=== PATIENT | female | born 1940 | race Caucasian/White ===

== ENCOUNTER 2018-03-23 15:10 | Emergency (ER) | payer OTHER ==
[2018-03-23 15:51] LABS: BASO # 0.1 10^3/uL (0.0-0.2); BASO % 1.4 % (0.0-1.0); EOS # 0.3 10^3/uL (0.0-0.50); HEMATOCRIT 45.2 % (36.0-47.0); HEMOGLOBIN 14.9 g/dl (12.0-15.5); IMMATURE GRANULOCYTE % 0.2 % (0-3.0); LYMPH # 2.5 10^3/uL (1.5-4.5); LYMPH % 29.5 % (24.0-44.0); MEAN CORPUSCULAR HEMOGLOBIN 31.8 pg (27.0-33.0); MEAN CORPUSCULAR VOLUME 96.6 fl (80.0-96.0); MONO # 0.6 10^3/uL (0.0-0.8); MONO % 7.4 % (0.0-5.0); NEUTROPHILS # 4.9 10^3/uL (1.8-7.7); NEUTROPHILS % 58.5 % (36.0-66.0); PLATELET COUNT, AUTOMATED 227 10^3/uL (150-450); RED BLOOD COUNT 4.68 10^6/uL (4.00-5.40); RED CELL DISTRIBUTION WIDTH 13.4 % (11.5-14.5); WHITE BLOOD COUNT 8.4 10^3/uL (4.0-10.0)
[2018-03-23] MEDS: IPRATROPIUM 0.5MG/ALBUTEROL 2.5MG INH SOL UD 3ML (DUONEB)(J7620) NEB (15:51)
[2018-03-23 16:24] LABS: ALBUMIN 3.8 GM/DL (3.2-5.2); ALBUMIN/GLOBULIN RATIO 0.93 (1.00-1.93); ALKALINE PHOSPHATASE 89 U/L (45-117); ALT/SGPT 14 U/L (12-78); ANION GAP 6 MEQ/L (8-16); AST/SGOT 24 U/L (7-37); BILIRUBIN,DIRECT < 0.1 MG/DL (0.0-0.2); BILIRUBIN,TOTAL 0.5 MG/DL (0.2-1.0); BLOOD UREA NITROGEN 10 MG/DL (7-18); CALCIUM LEVEL 8.8 MG/DL (8.8-10.2); CARBON DIOXIDE LEVEL 29 MEQ/L (21-32); CHLORIDE LEVEL 105 MEQ/L (98-107); CPK CREATINE PHOSPHOKINASE 97 U/L (26-192); CREATININE FOR GFR 0.63 MG/DL (0.55-1.30); GLOMERULAR FILTRATION RATE > 60.0 (>39); GLUCOSE, FASTING 77 MG/DL (70-100); POTASSIUM SERUM 4.4 MEQ/L (3.5-5.1); SODIUM LEVEL 140 MEQ/L (136-145); TOTAL PROTEIN 7.9 GM/DL (6.4-8.2); TROPONIN I < 0.02 NG/ML (< 0.10)
[2018-03-23 16:29] LABS: CK-MB VALUE MASS 1.5 NG/ML (<3.6); MB/CK RELATIVE INDEX 1.54 (< OR =4)
[2018-03-23] MEDS ORDERED: ISOVUE-370 76% 100ML VIAL (Q9967) As Ordered (16:42)
[2018-03-23 16:59] LABS: INR 0.95; PROTHROMBIN TIME 12.7 SECONDS (12.1-14.4)
[2018-03-23 17:00] LABS: PARTIAL THROMBOPLASTIN TIME 28.3 SECONDS (25.4-37.6)
[2018-03-23 18:57] LABS: D-DIMER QUANT 2244.5 ng/ml (<500)
== END 2018-03-23 20:44 | disposition left against medical advice (07) ==
LOC: M ED 15:10
DX: R07.81 Pleurodynia (principal); I26.99 Other pulmonary embolism without acute cor pulmonale; R94.31 Abnormal electrocardiogram [ECG] [EKG]; I25.2 Old myocardial infarction; J44.9 Chronic obstructive pulmonary disease, unspecified; E78.70 Disorder of bile acid and cholesterol metabolism, unspecified; K21.9 Gastro-esophageal reflux disease without esophagitis; F17.200 Nicotine dependence, unspecified, uncomplicated; Z79.899 Other long term (current) drug therapy; Z88.8 Allergy status to other drugs, medicaments and biological substances; Z88.0 Allergy status to penicillin; Z88.2 Allergy status to sulfonamides
CPT/HCPCS: Q9967

== ENCOUNTER 2019-03-10 16:41 | Inpatient (IN) | payer OTHER ==
[~2019-03-10] VITALS: Ht 134.6 cm; Wt 35.8 kg
[~2019-03-10 16:41] MED LIST: ALPR0.5T3 PO; ATOR40TA75 PO; CART180C3; CITA40TA4 PO; DILT180C43; OMEP1CAP73 PO; SYMBICORT; VENTAER
[2019-03-10] MEDS ORDERED: DONE10TA90 PO (16:56)
[2019-03-10] MEDS ORDERED: ISOS30TA4 PO (16:56)
[2019-03-10] MEDS ORDERED: DILT120C89 PO (16:56)
[2019-03-10] MEDS ORDERED: CLOP75TA2 PO (16:56)
--- NOTE | 2019-03-10 17:35 | REP ---
Portable chest x-ray: Single view. History: Dyspnea and cough. Comparison chest x-ray: March 23 1018. Findings: EKG monitoring electrodes overlie the chest along with oxygen delivery tubing. There is diffuse osteopenia. The patient is extremely thin. The lungs are well inflated and free of infiltrate. Heart is not enlarged. The aorta is calcific and tortuous. Interstitial markings are slightly prominent today. This is a new finding. Question interstitial edema versus diffuse interstitial infiltrate. Exam is otherwise unremarkable. Electronically Signed by Jorge A Latham MD 03/10/2019 05:26 P
[2019-03-10] MEDS ORDERED: IPRATROPIUM 0.5MG/ALBUTEROL 2.5MG INH SOL UD 3ML (DUONEB)(J7620) NEB ONE (17:45)
[2019-03-10] MEDS ORDERED: ALBUTEROL SULFATE 2.5 MG/0.5 ML INH NEB SOLN INH ONE (17:45)
[2019-03-10] MEDS ORDERED: dexameTHASONE 20 MG/5 ML VIAL (J1100) IV ONE (17:45)
[2019-03-10 18:00] LABS: BASO # 0.1 10^3/uL (0.0-0.2); BASO % 0.8 % (0.0-1.0); EOS # 0.1 10^3/uL (0.0-0.50); HEMATOCRIT 40.4 % (36.0-47.0); HEMOGLOBIN 12.9 g/dl (12.0-15.5); LYMPH # 1.2 10^3/uL (1.5-4.5); LYMPH % 11.5 % (24.0-44.0); MEAN CORPUSCULAR HEMOGLOBIN 30.8 pg (27.0-33.0); MEAN CORPUSCULAR HGB CONC 31.9 g/dl (32.0-36.5); MEAN CORPUSCULAR VOLUME 96.4 fl (80.0-96.0); MONO # 1.5 10^3/uL (0.0-0.8); MONO % 14.7 % (0.0-5.0); NEUTROPHILS # 7.4 10^3/uL (1.8-7.7); NEUTROPHILS % 71.5 % (36.0-66.0); PLATELET COUNT, AUTOMATED 257 10^3/uL (150-450); RED BLOOD COUNT 4.19 10^6/uL (4.00-5.40); VENOUS BASE EXCESS 4.9 (-2.0-2.0); VENOUS HCO3 31.2 MEQ/L (23.0-27.0); VENOUS O2 SATURATION 99.1 % (60.0-80.0); VENOUS PARTIAL PRESSURE O2 144.1 mmHg (30.0-50.0); VENOUS PH 7.388 UNITS (7.330-7.430); VENOUS STANDARD HCO3 28.9 MEQ/L; VENOUS TOTAL CO2 32.8 MEQ/L (24.0-28.0); WHITE BLOOD COUNT 10.4 10^3/uL (4.0-10.0)
[2019-03-10 18:40] LABS: ALBUMIN 3.1 GM/DL (3.2-5.2); ALT/SGPT 15 U/L (12-78); BILIRUBIN,DIRECT 0.2 MG/DL (0.0-0.2); BILIRUBIN,TOTAL 0.2 MG/DL (0.2-1.0); BLOOD UREA NITROGEN 28 MG/DL (7-18); CALCIUM LEVEL 8.6 MG/DL (8.8-10.2); CARBON DIOXIDE LEVEL 30 MEQ/L (21-32); CHLORIDE LEVEL 105 MEQ/L (98-107); CK-MB VALUE MASS 4.9 NG/ML (<3.6); CPK CREATINE PHOSPHOKINASE 147 U/L (26-192); CREATININE FOR GFR 0.61 MG/DL (0.55-1.30); GLOMERULAR FILTRATION RATE > 60.0 (>32); GLUCOSE, FASTING 100 MG/DL (70-100); MB/CK RELATIVE INDEX 3.33 (< OR =4); NT-PRO BNP 1413 PG/ML (<450); POTASSIUM SERUM 2.9 MEQ/L (3.5-5.1); SODIUM LEVEL 142 MEQ/L (136-145); TOTAL PROTEIN 6.5 GM/DL (6.4-8.2); TROPONIN I < 0.02 NG/ML (< 0.10)
--- NOTE | 2019-03-10 20:49 | ECGEPIP ---
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
[2019-03-10 20:50] LABS: INR 0.99; PROTHROMBIN TIME 12.8 SECONDS (11.8-14.0)
[2019-03-10] MEDS ORDERED: SYMB16INH INH (21:22)
[2019-03-10] MEDS ORDERED: ACETAMINOPHEN TAB 650MG DOSE (2X325MG) PO PRN (21:45)
[2019-03-10] MEDS ORDERED: ALPRAZolam 0.5 MG TAB PO PRN (21:45)
--- NOTE | 2019-03-10 21:57 | HPEPDOC ---
General Date of Admission 03/10/19 Date of Service: Mar 10, 2019 Chief Complaint The patient is a 78-year-old female admitted with a reason for visit of SOB. History of Present Illness 78-year-old female with past medical history of anxiety/depression, dyslipidemia, GERD, atrial fibrillation not on anticoagulation, and COPD who is visiting her daughter from [place] presents to the ER with a chief complaint of shortness of breath. The patient's history was limited due to her clinical condition. According to the patient's daughter, the patient has been feeling increasingly short of breath over the last 5 days. She has also been having a cough productive of green sputum. She endorses of the patient smokes 2 packs per day of tobacco, and has been doing so for the last 60+ years. She denies chronic oxygen use, or steroid use. She denies any complaints of fevers, chills, chest pain, palpitations, abdominal pain, or any nausea/vomiting/diarrhea. In the ER, the patient was noted to be in atrial fibrillation with rapid ventricular rate secondary to COPD exacerbation. She will be admitted to the hospitalist service for further evaluation and management. Home Medications Scheduled Atorvastatin Calcium (Atorvastatin Calcium) 40 Mg Tab, 40 MG PO DAILY, (Reported) Budesonide/Formoterol (Symbicort 160-4.5 Mcg Inhaler) 6 Gm Hfa.aer.ad, 2 PUFF INH BID, (Reported) Citalopram Hydrobromide (Citalopram HBr) 40 Mg Tab, 40 MG PO DAILY, (Reported) Clopidogrel Bisulfate (Clopidogrel) 75 Mg Tablet, 75 MG PO DAILY, (Reported) Donepezil HCl (Donepezil HCl) 10 Mg Tablet, 10 MG PO QHS, (Reported) Isosorbide Mononitrate (Isosorbide Mononitrate ER) 30 Mg Tab.er.24h, 30 MG PO DAILY, (Reported) Omeprazole (Omeprazole) 20 Mg Cap, 20 MG PO DAILY, (Reported) dilTIAZem HCl (Diltiazem 24Hr Cd) 120 Mg Cap.er.24h, 120 MG PO DAILY, (Reported) Scheduled PRN Alprazolam (Alprazolam) 0.5 Mg Tab, 0.5 MG PO TID PRN for ANXIETY, (Reported) Allergies Coded Allergies: Penicillins (Verified Allergy, Unknown, 03/10/19) Sulfa (Sulfonamide Antibiotics) (Verified Allergy, Unknown, 03/10/19) cimetidine (Verified Allergy, Unknown, 03/10/19) Past Medical History Medical History As noted in HPI. Social History * Smoker: current smoker (has smoked 2 packs per day on average for the past 60+ years.) Alcohol: Denies Drugs: denies Lives with her daughter while visiting here. He does travel back and forth to [place]. Review of Systems Other systems Unable to obtain 10 point review of systems due to clinical condition. Physical Examination General Exam: Positive: Mild Distress (secondary to shortness of breath), Other (patient cachectic, malnourished appearing) ENT Exam: Positive: Atraumatic, Other ENT (bitemporal wasting noted) Chest Exam: Positive: Wheezing, Diminished, Other (barrel-shaped chest with rib s visible on the surface of the skin.); Negative: Rales Heart Exam: Positive: Tachycardic, Irregular Rhythm Telemetry: Positive: Atrial fibrillation Abdomen Exam: Positive: Soft; Negative: Tenderness Extremity Exam: Negative: Tenderness, Swelling Vital Signs Vital Signs Date Time Temp Pulse Resp B/P (MAP) Pulse Ox O2 Delivery O2 Flow Rate FiO2 03/10/19 17:30 Nasal Cannula 03/10/19 17:30 03/10/19 16:41 98.0 117 20 82 Laboratory Data Labs 24H Laboratory Tests 2 03/10/19 17:52: Immature Granulocyte % (Auto) 0.5, White Blood Count 10.4H, Red Blood Count 4.19, Hemoglobin 12.9, Hematocrit 40.4, Mean Corpuscular Volume 96.4H, Mean Corpuscular Hemoglobin 30.8, Mean Corpuscular Hemoglobin Concent 31.9L, Red Cell Distribution Width 14.4, Platelet Count 257, Neutrophils (%) (Auto) 71.5H, Lymphocytes (%) (Auto) 11.5L, Monocytes (%) (Auto) 14.7H, Eosinophils (%) (Auto) 1.0, Basophils (%) (Auto) 0.8, Neutrophils # (Auto) 7.4, Lymphocytes # (Auto) 1.2L, Monocytes # (Auto) 1.5H, Eosinophils # (Auto) 0.1, Basophils # (Auto) 0.1, Nucleated Red Blood Cells % (auto) 0.0, Blood Gas Bicarbonate Standard 28.9, Venous Blood pH 7.388, Venous Blood Partial Pressure CO2 53.0H, Venous Blood Partial Pressure O2 144.1H, Venous Blood Total Carbon Dioxide 32.8H, Venous Blood HCO3 31.2H, Venous Blood Oxygen Saturation 99.1H, Venous Blood Base Excess 4.9H, Anion Gap 7L, Glomerular Filtration Rate > 60.0, Calcium Level 8.6L, Aspartate Amino Transf (AST/SGOT) 27, Alanine Aminotransferase (ALT/SGPT) 15, Alkaline Phosphatase 90, Total Bilirubin 0.2, Direct Bilirubin 0.2, Total Creatine Kinase 147, Creatine Kinase MB 4.9H, Creatine Kinase MB Relative Index 3.33, Troponin I < 0.02, YM-Aht-N-Type Natriuretic Peptide 1413H, Total Protein 6.5, Albumin 3.1L, Albumin/Globulin Ratio 0.91L 03/10/19 20:27: Urine Color YELLOW, Urine Appearance HAZY, Urine pH 5.0, Urine Specific [place] 1.021, Urine Protein 1+H, Urine Glucose (UA) NEGATIVE, Urine Ketones 1+H, Urine Blood 2+H, Urine Nitrite NEGATIVE, Urine Bilirubin NEGATIVE, Urine Urobilinogen 0.2, Urine Leukocyte Esterase NEGATIVE, Urine WBC (Auto) 6H, Urine RBC (Auto) 44H, Urine Hyaline Casts (Auto) 13, Urine Bacteria (Auto) NEGATIVE, Urine Squamous Epithelial Cells 1, Urine Mucus (Auto) SMALL, Urine Sperm (Auto) 03/10/19 20:33: Prothrombin Time 12.8, Prothromb Time International Ratio 0.99 CBC/BMP Laboratory Tests 03/10/19 17:52 Red Blood Count 4.19, Mean Corpuscular Volume 96.4 H, Mean Corpuscular Hemoglobin 30.8, Mean Corpuscular Hemoglobin Concent 31.9 L, Red Cell Distribution Width 14.4, Neutrophils (%) (Auto) 71.5 H, Lymphocytes (%) (Auto) 11.5 L, Monocytes (%) (Auto) 14.7 H, Eosinophils (%) (Auto) 1.0, Basophils (%) (Auto) 0.8, Neutrophils # (Auto) 7.4, Lymphocytes # (Auto) 1.2 L, Monocytes # (Auto) 1.5 H, Eosinophils # (Auto) 0.1, Basophils # (Auto) 0.1 Plan / VTE VTE Prophylaxis Ordered?: Yes Plan Plan COPD exacerbation, Hypoxia Chest x-ray noted IV Solu-Medrol, inhaler therapy, and serial nebulizer treatments ordered. Azithromycin We will continue to down titrate the patient's supplemental oxygen as tolerated Continue to monitor respiratory status Atrial fibrillation with rapid ventricular rate Likely secondary to above Continue home dose of Cardizem, Lopressor when necessary ordered Blood pressure stable The patient does not take anticoagulation--she does take Plavix for unclear reasons, the patient's daughter denies any history of heart disease Dyslipidemia Continue statin GERD Continue PPI Anxiety/depression Continue Xanax when necessary, Celexa DVT prophylaxis SCDs/TEDs Code Status--I did have an extensive discussion with the patient's daughter at the bedside, and she has verbalized that the patient is a DNR/DNI and has paperwork in [place]. We have signed a MOLST form here to reflect that status. Poor long-term prognosis given her advanced COPD, cachexia, and continued tobacco use. NOAH MONTANO MD Mar 10, 2019 21:57
[2019-03-10] MEDS ORDERED: AZITHROMYCIN INJ 500 MG, VIAL MATE ADAPTER 1 EACH in D5W 250 ML IV SCH (22:00)
[2019-03-11 00:10] VITALS: BP 115/56
[2019-03-11] MEDS: methylPREDNISolone INJ 40 MG/1 ML VIAL (J2920) IV SCH ×2 (00:41→09:22)
[2019-03-11] MEDS: METOPROLOL TART 25 MG TABLET PO SCH ×4 (00:42→12:24)
[2019-03-11 04:00] VITALS: BP 110/58
[2019-03-11] MEDS: LEVALBUTEROL 1.25 MG/0.5 ML CONCENTRATE NEB INH SCH ×5 (04:00→14:47)
[2019-03-11 07:46] LABS: HEMOGLOBIN 12.5 g/dl (12.0-15.5); MEAN CORPUSCULAR HEMOGLOBIN 30.5 pg (27.0-33.0); MEAN CORPUSCULAR HGB CONC 31.3 g/dl (32.0-36.5); MEAN CORPUSCULAR VOLUME 97.6 fl (80.0-96.0); PLATELET COUNT, AUTOMATED 261 10^3/uL (150-450); WHITE BLOOD COUNT 8.6 10^3/uL (4.0-10.0)
[2019-03-11 08:00] VITALS: BP 112/70
[2019-03-11 08:18] LABS: ALBUMIN 2.8 GM/DL (3.2-5.2); ALT/SGPT 15 U/L (12-78); BILIRUBIN,TOTAL 0.2 MG/DL (0.2-1.0); BLOOD UREA NITROGEN 30 MG/DL (7-18); CALCIUM LEVEL 8.4 MG/DL (8.8-10.2); CARBON DIOXIDE LEVEL 30 MEQ/L (21-32); CHLORIDE LEVEL 103 MEQ/L (98-107); CREATININE FOR GFR 0.52 MG/DL (0.55-1.30); GLOMERULAR FILTRATION RATE > 60.0 (>32); GLUCOSE, FASTING 149 MG/DL (70-100); POTASSIUM SERUM 3.7 MEQ/L (3.5-5.1); SODIUM LEVEL 140 MEQ/L (136-145); TOTAL PROTEIN 6.9 GM/DL (6.4-8.2)
[2019-03-11] MEDS ORDERED: OMEPRAZOLE 20 MG CAP PO SCH (09:00)
[2019-03-11] MEDS ORDERED: ISOSORBIDE MON. (IMDUR) 30 MG XR TAB PO SCH (09:00)
[2019-03-11] MEDS ORDERED: CitaloPRAM (CeleXA) 20 MG TAB PO SCH (09:00)
[2019-03-11] MEDS ORDERED: POTASSIUM CHLORIDE 10 MEQ SR TABLET PO ONE (09:00)
[2019-03-11] MEDS ORDERED: ATORVASTATIN 20 MG TAB PO SCH (09:00)
[2019-03-11] MEDS ORDERED: CLOPIDOGREL 75 MG TAB PO SCH (09:00)
[2019-03-11] MEDS ORDERED: KCL 10MEQ/100ML SWI (KRUN) 10 MEQ in IV 1 EA IV SCH (09:00)
[2019-03-11] MEDS ORDERED: SYMBICORT 160/4.5MCG INHALER 6GM INH SCH (09:00)
[2019-03-11] MEDS ORDERED: NICOTINE 21MG/24HR 1 EA TRANSDERMAL TD SCH (09:00)
[2019-03-11 12:00] VITALS: BP 114/78
[2019-03-11 12:24] VITALS: BP 114/78
--- NOTE | 2019-03-11 14:50 | IPNPDOC ---
Date Seen The patient was seen on 03/11/19. Progress Note SUBJECTIVE: Patient reports good improvement in her respiratory symptoms today, she tells me that she still has some shortness of breath but is not as bad as it was yesterday. She denies palpitations lightheadedness otherwise patient denies chest pain, nausea, vomiting, fevers, chills OBJECTIVE PHYSICAL EXAMINATION: VITAL SIGNS: Please see below. GENERAL: Frail elderly cachectic female laying in bed accompanied by her daughter no Acute distress HEENT: Moist mucous membranes no elevation in CVP CARDIOVASCULAR: S1 S2 regular no additional heart sounds appreciated. Regular at the time of my exam RESPIRATORY: Clear to auscultation bilaterally. Poor effort diminished throughout at the bases prolonged expiratory phase, scaling wasting ABDOMINAL: Bowel sounds present abdomen soft and nontender, scaphoid EXTREMITIES: No clubbing cyanosis or edema, she is significantly wasted NEUROLOGICAL: Spontaneously moves all 4 extremities cranial 2 through 12 grossly intact no gross focal deficits appreciated PSYCHOLOGICAL: Appropriate LABORATORY DATA, MICROBIOLOGY: Please see below. IMAGING STUDIES: Chest x-ray:EKG monitoring electrodes overlie the chest along with oxygen delivery tubing. There is diffuse osteopenia. The patient is extremely thin. The lungs are well inflated and free of infiltrate. Heart is not enlarged. The aorta is calcific and tortuous. Interstitial markings are slightly prominent today. This is a new finding. Question interstitial edema versus diffuse interstitial infiltrate. Exam is otherwise unremarkable. ASSESSMENT AND PLAN: This is a 78-year-old female with decompensated COPD. PROBLEMS: 1. Hypoxic respiratory failure secondary to decompensated COPD: She is significantly improved today and as such we'll continue with her current intervention of IV Solu-Medrol nebulizer therapy azithromycin although infectious etiology of lower differential. We will titrate her oxygen as niloe rated process 80-92 she normally refuses to wear oxygen at home. She normally refuses to see doctors and has not followed up recently in [place] where she lives. She does have a wet cough and appears to have some mild clearance of secretions I'll provide her with an Acapella and Mucinex 2. Atrial fibrillation with rapid ventricular response: Improved this morning following treatment of her respiratory distress upon presentation. Continue with Cardizem patient does not take anticoagulation only Plavix as per her providers in [place] patient and daughter are unable to provide any reasoning for this. 3. Dyslipidemia: Continue statin 4. Gastroesophageal reflux disease: Continue PPI 5. Mood disorder: Continue with Xanax and Celexa 6. Routine calorie malnutrition: Severe pulmonary cachexia patient's interstitial status is quite poor patient is a DNR/DNI after Dr. Haas's conversation she did express his wishes. I did a lengthy conversation with the patient and the daughter saying that her nutritional status is so poor that I suspect she will benefit from a nutrition consult I will order for speech therapy as well.. I did inform the patient and her daughter that given her nutritional status her prognosis is quite poor in the long-term although she is improved today 7. Hypokalemia: Resolved DVT prophylaxis: We will start Lovenox DISPOSITION: Pending speech therapy eval, nutrition consult, improvement in respiratory status. VS, I&O, 24H, Fishbone Vital Signs/I&O Vital Signs Date Time Temp Pulse Resp B/P (MAP) Pulse Ox O2 Delivery O2 Flow Rate FiO2 03/11/19 12:24 70 114/78 03/11/19 12:00 98.0 18 92 1.0 03/10/19 23:25 Nasal Cannula I&O- Last 24 Hours up to 6 AM 03/11/19 06:00 Intake Total 250 ml Output Total 0 ml Balance 250 ml Laboratory Data 24H LABS Laboratory Tests 2 03/10/19 17:52: Immature Granulocyte % (Auto) 0.5, White Blood Count 10.4H, Red Blood Count 4.19, Hemoglobin 12.9, Hematocrit 40.4, Mean Corpuscular Volume 96.4H, Mean Corpuscular Hemoglobin 30.8, Mean Corpuscular Hemoglobin Concent 31.9L, Red Cell Distribution Width 14.4, Platelet Count 257, Neutrophils (%) (Auto) 71.5H, Lymphocytes (%) (Auto) 11.5L, Monocytes (%) (Auto) 14.7H, Eosinophils (%) (Auto) 1.0, Basophils (%) (Auto) 0.8, Neutrophils # (Auto) 7.4, Lymphocytes # (Auto) 1.2L, Monocytes # (Auto) 1.5H, Eosinophils # (Auto) 0.1, Basophils # (Auto) 0.1, Nucleated Red Blood Cells % (auto) 0.0, Blood Gas Bicarbonate Standard 28.9, Venous Blood pH 7.388, Venous Blood Partial Pressure CO2 53.0H, Venous Blood Partial Pressure O2 144.1H, Venous Blood Total Carbon Dioxide 32.8H, Venous Blood HCO3 31.2H, Venous Blood Oxygen Saturation 99.1H, Venous Blood Base Excess 4.9H, Anion Gap 7L, Glomerular Filtration Rate > 60.0, Calcium Level 8.6L, Aspartate Amino Transf (AST/SGOT) 27, Alanine Aminotransferase (ALT/SGPT) 15, Alkaline Phosphatase 90, Total Bilirubin 0.2, Direct Bilirubin 0.2, Total Creatine Kinase 147, Creatine Kinase MB 4.9H, Creatine Kinase MB Relative Index 3.33, Troponin I < 0.02, YT-Uxt-L-Type Natriuretic Peptide 1413H, Total Protein 6.5, Albumin 3.1L, Albumin/Globulin Ratio 0.91L 03/10/19 20:27: Urine Color YELLOW, Urine Appearance HAZY, Urine pH 5.0, Urine Specific [place] 1.021, Urine Protein 1+H, Urine Glucose (UA) NEGATIVE, Urine Ketones 1+H, Urine Blood 2+H, Urine Nitrite NEGATIVE, Urine Bilirubin NEGATIVE, Urine Urobilinogen 0.2, Urine Leukocyte Esterase NEGATIVE, Urine WBC (Auto) 6H, Urine RBC (Auto) 44H, Urine Hyaline Casts (Auto) 13, Urine Bacteria (Auto) NEGATIVE, Urine Squamous Epithelial Cells 1, Urine Mucus (Auto) SMALL, Urine Sperm (Auto) 03/10/19 20:33: Prothrombin Time 12.8, Prothromb Time International Ratio 0.99 03/11/19 07:34: Nucleated Red Blood Cells % (auto) 0.0, Anion Gap 7L, Glomerular Filtration Rate > 60.0, Calcium Level 8.4L, Aspartate Amino Transf (AST/SGOT) 26, Alanine Aminotransferase (ALT/SGPT) 15, Alkaline Phosphatase 85, Total Bilirubin 0.2, Total Protein 6.9, Albumin 2.8L, Albumin/Globulin Ratio 0.68L, Blood Urea N itrogen 30H, Creatinine 0.52L, Sodium Level 140, Potassium Level 3.7#, Chloride Level 103, Carbon Dioxide Level 30, Magnesium Level 2.0 CBC/BMP Laboratory Tests 03/10/19 17:52 Red Blood Count 4.19, Mean Corpuscular Volume 96.4 H, Mean Corpuscular Hemoglobin 30.8, Mean Corpuscular Hemoglobin Concent 31.9 L, Red Cell Distribution Width 14.4, Neutrophils (%) (Auto) 71.5 H, Lymphocytes (%) (Auto) 11.5 L, Monocytes (%) (Auto) 14.7 H, Eosinophils (%) (Auto) 1.0, Basophils (%) (Auto) 0.8, Neutrophils # (Auto) 7.4, Lymphocytes # (Auto) 1.2 L, Monocytes # (Auto) 1.5 H, Eosinophils # (Auto) 0.1, Basophils # (Auto) 0.1 03/11/19 07:34 Red Blood Count 4.10, Mean Corpuscular Volume 97.6 H, Mean Corpuscular Hemoglobin 30.5, Mean Corpuscular Hemoglobin Concent 31.3 L, Red Cell Distribution Width 14.4, Calcium Level 8.4 L, Aspartate Amino Transf (AST/SGOT) 26, Alanine Aminotransferase (ALT/SGPT) 15, Alkaline Phosphatase 85, Total Bilirubin 0.2, Total Protein 6.9, Albumin 2.8 L CALLY ALLEN MD Mar 11, 2019 14:50
[2019-03-11] MEDS ORDERED: MUCI600T31 PO (16:18)
[2019-03-11] MEDS ORDERED: PRED10TA2 PO (16:18)
[2019-03-11] MEDS ORDERED: AZIT500T5 PO (16:19)
--- NOTE | 2019-03-11 16:23 | DS.PDOC ---
Discharge Summary General Date of Admission Mar 10, 2019 at 21:38 Date of Discharge 03/11/2019 Discharge Summary DISCHARGE DIAGNOSIS:Decompensated COPD SECONDARY DIAGNOSIS: 1. Atrial fibrillation with rapid ventricular response 2. Dyslipidemia 3. Gastroesophageal reflux disease 4. Mood disorder. Proteins telemetry malnutrition 6. Hypokalemia 7. Medical noncompliance PROCEDURES PERFORMED DURING STAY: None. CONSULTANTS: None HOSPITAL COURSE: Patient is an 78-year-old female who was admitted yesterday for COPD and Hypertension. With Rapid Ventricular Response Was Found to Be Significantly Cachectic She Was Started on Oxygen IV Steroids and Nebulizer Treatments and Azithromycin. Her Heart Rate Did Improve Her Respiratory Status Improved She Was Found to Be Severely Cachectic with a Wet Cough She Declined Offers for Full Excisional Assessment Speech Therapy Evaluation for Further Care and like to Leave the Hospital AGAINST MEDICAL ADVICE Abruptly. Hyperlipidemia the Patient Twice during the Day Prior to Her Leaving the Hospital and Extending from the Floor. Numerous Members of the Staff Attempted to Convince Her to Stay Including the Medical Staff. The Patient Did Walk out She Did Demonstrate Good Orientation and Mental Alertness an Understanding of the Situation. Follow-Up Was Not Able to Be Arranged However Prescriptions Were Sent to Her Pharmacy in Order to Make an Effort to Arrange a Safe Disposition As Possible. She understood the risks up to and including respiratory failure and DISCHARGE MEDICATIONS: Please see below. ALLERGIES: Please see below. DISPOSITION: Limb AGAINST MEDICAL ADVICE. DISCHARGE CONDITION: Improved. PROGNOSIS: Poor FOLLOW UP: PCP as soon as possible ACTIVITY: Limited due to dyspnea. DIET: As tolerated TIME SPENT ON DISCHARGE: 35 minutes Please see progress note from today's date for further details regarding assessment and plan as well as physical examination chief complaint Vital Signs/I&Os Vital Signs Date Time Temp Pulse Resp B/P (MAP) Pulse Ox O2 Delivery O2 Flow Rate FiO2 03/11/19 12:24 70 114/78 03/11/19 12:00 98.0 18 92 1.0 03/10/19 23:25 Nasal Cannula I&O- Last 24 Hours up to 6 AM 03/11/19 06:00 Intake Total 250 ml Output Total 0 ml Balance 250 ml Laboratory Data Labs 24H Laboratory Tests 2 03/10/19 17:52: Immature Granulocyte % (Auto) 0.5, White Blood Count 10.4H, Red Blood Count 4.19, Hemoglobin 12.9, Hematocrit 40.4, Mean Corpuscular Volume 96.4H, Mean Corpuscular Hemoglobin 30.8, Mean Corpuscular Hemoglobin Concent 31.9L, Red Cell Distribution Width 14.4, Platelet Count 257, Neutrophils (%) (Auto) 71.5H, Lymphocytes (%) (Auto) 11.5L, Monocytes (%) (Auto) 14.7H, Eosinophils (%) (Auto) 1.0, Basophils (%) (Auto) 0.8, Neutrophils # (Auto) 7.4, Lymphocytes # (Auto) 1.2L, Monocytes # (Auto) 1.5H, Eosinophils # (Auto) 0.1, Basophils # (Auto) 0.1, Nucleated Red Blood Cells % (auto) 0.0, Blood Gas Bicarbonate Standard 28.9, Venous Blood pH 7.388, Venous Blood Partial Pressure CO2 53.0H, Venous Blood Partial Pressure O2 144.1H, Venous Blood Total Carbon Dioxide 32.8H, Venous Blood HCO3 31.2H, Venous Blood Oxygen Saturation 99.1H, Venous Blood Base Excess 4.9H, Anion Gap 7L, Glomerular Filtration Rate > 60.0, Calcium Level 8.6L, Aspartate Amino Transf (AST/SGOT) 27, Alanine Aminotransferase (ALT/SGPT) 15, Alkaline Phosphatase 90, Total Bilirubin 0.2, Direct Bilirubin 0.2, Total Creatine Kinase 147, Creatine Kinase MB 4.9H, Creatine Kinase MB Relative Index 3.33, Troponin I < 0.02, ZB-Eny-M-Type Natriuretic Peptide 1413H, Total Protein 6.5, Albumin 3.1L, Albumin/Globulin Ratio 0.91L 03/10/19 20:27: Urine Color YELLOW, Urine Appearance HAZY, Urine pH 5.0, Urine Specific [place] 1.021, Urine Protein 1+H, Urine Glucose (UA) NEGATIVE, Urine Ketones 1+H, Urine Blood 2+H, Urine Nitrite NEGATIVE, Urine Bilirubin NEGATIVE, Urine Urobilinogen 0.2, Urine Leukocyte Esterase NEGATIVE, Urine WBC (Auto) 6H, Urine RBC (Auto) 44H, Urine Hyaline Casts (Auto) 13, Urine Bacteria (Auto) NEGATIVE, Urine Squamous Epithelial Cells 1, Urine Mucus (Auto) SMALL, Urine Sperm (Auto) 03/10/19 20:33: Prothrombin Time 12.8, Prothromb Time International Ratio 0.99 03/11/19 07:34: Nucleated Red Blood Cells % (auto) 0.0, Anion Gap 7L, Glomerular Filtration Rate > 60.0, Calcium Level 8.4L, Aspartate Amino Transf (AST/SGOT) 26, Alanine Aminotransferase (ALT/SGPT) 15, Alkaline Phosphatase 85, Total Bilirubin 0.2, Total Protein 6.9, Albumin 2.8L, Albumin/Globulin Ratio 0.68L, Blood Urea Nitrogen 30H, Creatinine 0.52L, Sodium Level 140, Potassium Level 3.7#, Chloride Level 103, Carbon Dioxide Level 30, Magnesium Level 2.0 CBC/BMP Laboratory Tests 03/10/19 17:52 Red Blood Count 4.19, Mean Corpuscular Volume 96.4 H, Mean Corpuscular Hemoglobin 30.8, Mean Corpuscular Hemoglobin Concent 31.9 L, Red Cell Distribution Width 14.4, Neutrophils (%) (Auto) 71.5 H, Lymphocytes (%) (Auto) 11.5 L, Monocytes (%) (Auto) 14.7 H, Eosinophils (%) (Auto) 1.0, Basophils (%) (Auto) 0.8, Neutrophils # (Auto) 7.4, Lymphocytes # (Auto) 1.2 L, Monocytes # (Auto) 1.5 H, Eosinophils # (Auto) 0.1, Basophils # (Auto) 0.1 03/11/19 07:34 Red Blood Count 4.10, Mean Corpuscular Volume 97.6 H, Mean Corpuscular Hemoglobin 30.5, Mean Corpuscular Hemoglobin Concent 31.3 L, Red Cell Distribution Width 14.4, Calcium Level 8.4 L, Aspartate Amino Transf (AST/SGOT) 26, Alanine Aminotransferase (ALT/SGPT) 15, Alkaline Phosphatase 85, Total Bilirubin 0.2, Total Protein 6.9, Albumin 2.8 L Discharge Medications Scheduled Atorvastatin Calcium (Atorvastatin Calcium) 40 Mg Tab, 40 MG PO DAILY, (Reported) Azithromycin (Azithromycin) 500 Mg Tablet, 500 MG PO DAILY Budesonide/Formoterol (Symbicort 160-4.5 Mcg Inhaler) 6 Gm Hfa.aer.ad, 2 PUFF INH BID, (Reported) Citalopram Hydrobromide (Citalopram HBr) 40 Mg Tab, 40 MG PO DAILY, (Reported) Clopidogrel Bisulfate (Clopidogrel) 75 Mg Tablet, 75 MG PO DAILY, (Reported) Donepezil HCl (Donepezil HCl) 10 Mg Tablet, 10 MG PO QHS, (Reported) Guaifenesin (Mucinex) 600 Mg Tab.er.12h, 600 MG PO BID Isosorbide Mononitrate (Isosorbide Mononitrate ER) 30 Mg Tab.er.24h, 30 MG PO DAILY, (Reported) Omeprazole (Omeprazole) 20 Mg Cap, 20 MG PO DAILY, (Reported) Prednisone (Prednisone) 10 Mg Tablet, 10 MG PO TAPER Take 4 tabs daily x 3 days, then 3 tabs daily x 3 days, then 2 tabs daily x 3 days, then 1 tab daily x 3 days and stop dilTIAZem HCl (Diltiazem 24Hr Cd) 120 Mg Cap.er.24h, 120 MG PO DAILY, (Reported) Scheduled PRN Alprazolam (Alprazolam) 0.5 Mg Tab, 0.5 MG PO TID PRN for ANXIETY, (Reported) Allergies Coded Allergies: Penicillins (Verified Allergy, Unknown, 03/10/19) Sulfa (Sulfonamide Antibiotics) (Verified Allergy, Unknown, 03/10/19) cimetidine (Verified Allergy, Unknown, 03/10/19) CALLY ALLEN MD Mar 11, 2019 16:23
[2019-03-11] MEDS ORDERED: guaiFENesin ER 600 MG TAB PO SCH (21:00)
[2019-03-12] MEDS ORDERED: ENOXAPARIN 30 MG/0.3 ML SYR (J1650) SC SCH (09:00)
--- NOTE | 2019-03-13 08:15 | ECHO ---
DATE OF STUDY: 03/11/2019 AGE: 78 GENDER: Female HEIGHT: 53 inches. WEIGHT: 79 pounds, body surface area 1.15 meters squared. LOCATION: Inpatient PCU, room 3211. REFERRING PHYSICIAN: Dr. Deangelo Haas INDICATION: Dyspnea. MEASUREMENTS 2-D MEASUREMENTS: RV - 4.4 cm LV - 3.4 cm Septum 0.9 cm Posterior wall 0.9 cm Aortic root 2.7 cm LA - 3.7 cm LVEF 65% DOPPLER MEASUREMENTS: AV - 1.39 m/s LVOT - 0.72 m/s LVOT diameter 1.8 cm MV - E 73, A 68, E/E ratio 1.1 Early mitral deceleration time 173 ms E prime 9.6, A prime 8, E/E prime ratio 7.6 PV - 0.75 m/s Pulmonary artery acceleration time 109 ms RVSP 46 - 51 mmHg IVC - 2.3 cm COMMENTS: Underlying multifocal atrial rhythm/atrial tachycardia (not atrial fibrillation as indicated on her EKG interpretation). M-mode and two-dimensional echocardiography was performed along with pulsed, continuous wave, color flow and tissue Doppler studies. Normal left ventricular size, wall thickness and hyperkinetic wall motion. Left atrial size upper limits of normal with currently normal Doppler assessment of LV diastolic function and estimated mean left atrial pressure. Moderately dilated right heart chambers with reduced right ventricular free wall motion and Doppler evidence of at least moderate pulmonary hypertension. Mildly dilated inferior vena cava with reduced respiratory collapse in keeping with an elevated central venous pressure. Moderate aortic valvular sclerosis without stenosis and only trace insufficiency. Normal aortic dimensions. Mildly thickened mitral annulus but normal leaflet thickness with mild mitral insufficiency. Normal appearing tricuspid valve with at least moderate insufficiency. No intracardiac mass or pericardial effusion.
== END 2019-03-11 16:04 | disposition left against medical advice (07) | DRG 191 ==
LOC: M ED 16:41 → M ED INP 21:38 → M PCU 23:44
PROVIDERS: ADMIT Internal Medicine; ATTEND Internal Medicine
DX: J44.1 Chronic obstructive pulmonary disease with (acute) exacerbation (principal); E46 Unspecified protein-calorie malnutrition; I48.91 Unspecified atrial fibrillation; Z68.20 Body mass index [BMI] 20.0-20.9, adult; F41.9 Anxiety disorder, unspecified; F32.9 Major depressive disorder, single episode, unspecified; E78.5 Hyperlipidemia, unspecified; K21.9 Gastro-esophageal reflux disease without esophagitis; E87.6 Hypokalemia; F39 Unspecified mood [affective] disorder; F17.200 Nicotine dependence, unspecified, uncomplicated; Z79.899 Other long term (current) drug therapy; Z88.0 Allergy status to penicillin; Z88.2 Allergy status to sulfonamides; Z88.8 Allergy status to other drugs, medicaments and biological substances; Z66 Do not resuscitate; Z91.14 Patient's other noncompliance with medication regimen

== ENCOUNTER 2019-04-18 18:53 | Emergency (ER) | payer OTHER ==
[~2019-04-18] VITALS: Ht 157.5 cm; Wt 35.5 kg
[~2019-04-18 18:53] MED LIST changes: +AZIT500T2 PO; +CLOP75TA2 PO; +DILT120C61 PO; +DONE10TA90 PO; +ISOS30TA4 PO; +MUCI600T31 PO; -OMEP1CAP73 PO; +OMEP20CA4 PO; +PRED10TA2 PO; +SYMB16INH INH
[2019-04-18] MEDS ORDERED: METOPROLOL TART 25 MG TABLET PO ONE (19:30)
[2019-04-18] MEDS ORDERED: METOPROLOL 5 MG/5 ML VIAL IV SCH (19:30)
[2019-04-18 19:33] VITALS: BP 118/90
[2019-04-18 20:11] LABS: BASO # 0.1 10^3/uL (0.0-0.2); BASO % 0.7 % (0.0-1.0); EOS # 0.1 10^3/uL (0.0-0.50); EOS % 1.5 % (0.0-3.0); HEMOGLOBIN 13.3 g/dl (12.0-15.5); LYMPH # 1.6 10^3/uL (1.5-4.5); MEAN CORPUSCULAR HEMOGLOBIN 31.4 pg (27.0-33.0); MEAN CORPUSCULAR HGB CONC 32.4 g/dl (32.0-36.5); MEAN CORPUSCULAR VOLUME 96.7 fl (80.0-96.0); MONO # 0.5 10^3/uL (0.0-0.8); MONO % 6.7 % (0.0-5.0); NEUTROPHILS # 5.1 10^3/uL (1.8-7.7); NEUTROPHILS % 68.8 % (36.0-66.0); PLATELET COUNT, AUTOMATED 217 10^3/uL (150-450); RED BLOOD COUNT 4.24 10^6/uL (4.00-5.40); WHITE BLOOD COUNT 7.3 10^3/uL (4.0-10.0)
[2019-04-18 20:35] LABS: PROTHROMBIN TIME 12.9 SECONDS (11.8-14.0)
[2019-04-18 20:36] LABS: PARTIAL THROMBOPLASTIN TIME 27.6 SECONDS (25.0-38.4)
[2019-04-18 20:37] LABS: BLOOD UREA NITROGEN 17 MG/DL (7-18); CALCIUM LEVEL 8.7 MG/DL (8.8-10.2); CARBON DIOXIDE LEVEL 28 MEQ/L (21-32); CHLORIDE LEVEL 108 MEQ/L (98-107); CK-MB VALUE MASS 2.4 NG/ML (<3.6); CPK CREATINE PHOSPHOKINASE 54 U/L (26-192); CREATININE FOR GFR 0.47 MG/DL (0.55-1.30); GLOMERULAR FILTRATION RATE > 60.0 (>32); GLUCOSE, FASTING 87 MG/DL (70-100); MB/CK RELATIVE INDEX 4.44 (< OR =4); POTASSIUM SERUM 3.1 MEQ/L (3.5-5.1); SODIUM LEVEL 141 MEQ/L (136-145); TROPONIN I < 0.02 NG/ML (< 0.10)
--- NOTE | 2019-04-18 20:37 | ECGEPIP ---
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
[2019-04-18] MEDS ORDERED: POTASSIUM CHLORIDE 10 MEQ SR TABLET PO ONE (20:45)
--- NOTE | 2019-04-18 21:35 | REP ---
PORTABLE CHEST: Single portable view of the chest is performed and compared to prior studies, most recently 03/10/2019. There is mild interstitial prominence which is unchanged with no new infiltrate. Heart is not enlarged. There is calcification and tortuosity of the thoracic aorta. The mediastinal silhouette is unchanged. IMPRESSION: No acute infiltrate. Electronically Signed by Jero Garcia MD 04/19/2019 02:38 P
[2019-04-19 00:23] LABS: CK-MB VALUE MASS 1.9 NG/ML (<3.6); MB/CK RELATIVE INDEX 3.8 (< OR =4); TROPONIN I 0.02 NG/ML (< 0.10)
[2019-04-19 00:53] VITALS: BP 120/76
--- NOTE | 2019-04-19 01:58 | ECGEPIP ---
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
== END 2019-04-19 01:03 | disposition home or self-care (01) ==
LOC: M ED 18:53
DX: I48.91 Unspecified atrial fibrillation (principal); Z91.19 Patient's noncompliance with other medical treatment and regimen; R00.0 Tachycardia, unspecified; I11.0 Hypertensive heart disease with heart failure; I50.9 Heart failure, unspecified; K21.9 Gastro-esophageal reflux disease without esophagitis; J44.1 Chronic obstructive pulmonary disease with (acute) exacerbation; E78.5 Hyperlipidemia, unspecified; F41.9 Anxiety disorder, unspecified; F32.9 Major depressive disorder, single episode, unspecified; F17.210 Nicotine dependence, cigarettes, uncomplicated; Z88.0 Allergy status to penicillin; Z88.2 Allergy status to sulfonamides; Z88.8 Allergy status to other drugs, medicaments and biological substances; Z79.899 Other long term (current) drug therapy; Z79.02 Long term (current) use of antithrombotics/antiplatelets; Z79.51 Long term (current) use of inhaled steroids